=== PATIENT | female | born 1985 | race Hispanic/Latino ===

== ENCOUNTER 2022-07-17 15:54 | Emergency (ER) | payer MEDICAID ==
[~2022-07-17] VITALS: Ht 152.4 cm; Wt 95.3 kg
[2022-07-17 17:46] LABS: APPEARANCE,URINE CLOUDY (CLEAR); BILIRUBIN,URINE NEGATIVE (NEGATIVE); COLOR,URINE YELLOW (YELLOW); GLUCOSE, URINE (UA) NEGATIVE (NEGATIVE); KETONES,URINE NEGATIVE (NEGATIVE); LEUKOCYTE ESTERASE ,URINE 25 Leu/uL (NEGATIVE); NITRATE,URINE NEGATIVE (NEGATIVE); OCCULT BLOOD,URINE SMALL (NEGATIVE); PH,URINE 5.5 (5.0-8.0); PROTEIN,URINE 200 mg/dL (NEGATIVE); UROBILINOGEN,URINE 0.2 mg/dL (0.2-1.0)
[2022-07-17 17:50] LABS: HCG,QUALITATIVE URINE NEGATIVE (NEGATIVE)
[2022-07-17 17:51] LABS: BACTERIA,URINE RARE /HPF (None Seen); MUCUS,URINE RARE LPF (None Seen); SQUAMOUS EPITHELIAL CELL,UR RARE /HPF (0-2)
[2022-07-17 17:54] LABS: AMPHET/METH SCREEN,URINE NEGATIVE (NEGATIVE); BARBITURATE SCREEN, URINE NEGATIVE (NEGATIVE); BENZODIAZEPINES SCREEN,URINE NEGATIVE (NEGATIVE); CANNABINOID SCREEN,URINE NEGATIVE (NEGATIVE); COCAINE SCREEN,URINE POSITIVE (NEGATIVE); OPIATE SCREEN,URINE NEGATIVE (NEGATIVE); PHENCYCLIDINE SCREEN,URINE NEGATIVE (NEGATIVE)
[2022-07-17 17:56] LABS: BASOPHILS % (AUTO) 0.7 % (0.0-5.0); HEMATOCRIT 37.5 % (36-48); LYMPHOCYTES % (AUTO) 8.9 % (21.0-51.0); MEAN CORPUSCULAR HGB CONC 33.1 g/dL (32.0-36.0); MEAN CORPUSCULAR VOLUME 81.5 fL (79-99); MONOCYTES % (AUTO) 5.8 % (3.0-13.0); NEUTROPHILS % (AUTO) 83.9 % (40.0-77.0); PLATELET COUNT (AUTO) 283 K/uL (130-400); RED CELL DISTRIBUTION WIDTH 14.1 % (11.0-15.5); WHITE BLOOD COUNT (AUTO) 7.1 K/uL (4.8-10.8)
[2022-07-17 18:10] LABS: ALANINE AMINOTRANSFERASE 16 U/L (12-78); ASPARTATE AMINOTRANSFERASE 15 U/L (10-37); CARBON DIOXIDE 22 mmol/L (21-32); CHLORIDE 93 mmol/L (101-111); CREATININE 1.8 mg/dL (0.5-1.5); GLOMERULAR FILTR. RATE CALC 33 mL/min (>60); GLUCOSE,RANDOM 219 mg/dL (70-105); SODIUM SERUM 131 mmol/L (136-145); TOTAL PROTEIN, SERUM 8.5 g/dL (6.0-8.3); UREA NITROGEN, BLOOD 33 mg/dL (7-18)
[2022-07-17 18:17] LABS: LIPASE < 50 U/L (114-286)
[2022-07-17 18:19] LABS: POTASSIUM 2.6 mmol/L (3.5-5.1)
[2022-07-17] MEDS ORDERED: ONDANSETRON 4MG INJ IVP ONE (18:30)
[2022-07-17] MEDS ORDERED: 0.9%NACL 1000ML 1,000 ML IV ONE ×2 (18:30→20:00)
[2022-07-17] MEDS ORDERED: FAMOTIDINE 20MG VIAL IV ONE (18:30)
[2022-07-17] MEDS ORDERED: POTASSIUM CHLORIDE 10MEQ/100ML 10 MEQ/100 ML ML IV SCH (18:30)
[2022-07-17] MEDS ORDERED: POTASSIUM BICARB/CIT AC 25 MEQ TABLET.EFF PO ONE ×3 (18:30→23:30)
[2022-07-17] MEDS ORDERED: MORPHINE 4 MG SYG IVP ONE (19:00)
[2022-07-17] MEDS ORDERED: BACI1CAP6 PO (21:50)
[2022-07-17] MEDS ORDERED: CEPH500B PO (21:50)
[2022-07-17] MEDS ORDERED: DICY20TA2 PO (21:50)
[2022-07-17] MEDS ORDERED: ONDA4TAB10 PO (21:50)
[2022-07-17] MEDS ORDERED: FAMO-136 PO (21:50)
[2022-07-17] MEDS ORDERED: CEFTRIAXONE 1G VIAL IVP ONE (22:00)
[2022-07-17] MEDS ORDERED: DICYCLOMINE HCL 20 MG TAB PO SCH (22:00)
[2022-07-17 23:10] LABS: CREATININE 1.3 mg/dL (0.5-1.5); POTASSIUM 3.2 mmol/L (3.5-5.1)
[2022-07-17 23:48] VITALS: BP 115/72
== END 2022-07-17 23:49 | disposition home or self-care (01) ==
LOC: EDH 15:54
DX: K52.9 Noninfective gastroenteritis and colitis, unspecified (principal); N39.0 Urinary tract infection, site not specified; E86.0 Dehydration; E87.6 Hypokalemia; Z79.899 Other long term (current) drug therapy; Z20.822 Contact with and (suspected) exposure to COVID-19
CPT/HCPCS: 99284; 74176; 96365; 96375; 96361; 87635; 80053; 80305; 83690; 85025; 87040 ×2; 87077; 87088; 87186; 87804 ×2; 83605 ×2; 81025; 36415; 96368; 81001; 80048; C9803; J7030 ×2; J0696; J2405; J2270; S0028; J3490